=== PATIENT | female | born 1965 | race Two or more races ===

== ENCOUNTER 2020-02-04 05:46 | Day surgery (SDC) | payer OTHER ==
[~2020-02-04] VITALS: Ht 152.4 cm; Wt 68.0 kg
[~2020-02-04 05:46] MED LIST: ZOCOR20 MG PO
[2020-02-04 06:02] LABS: HEMATOCRIT 40.6 % (36.0-48.0); MCH 30.3 pg (26.0-34.0); MCV 94.6 fL (80.0-100.0); MEAN PLATELET VOLUME 10.6 fL (7.4-10.4); RBC 4.29 10x6/uL (4.00-5.40); RDW 13.3 % (11.5-14.5); WBC 5.4 10x3/uL (4.8-10.8)
[2020-02-04 06:56] VITALS: BP 105/61; Ht 152.4 cm; Wt 68.0 kg
[2020-02-04] MEDS ORDERED: HYDROCODON-ACE1 EAC7 PO (08:36)
== END 2020-02-04 10:30 | disposition home or self-care (01) ==
LOC: D.OPS 05:46 → D.PAN 07:30 → D.OPS 08:00 → D.PAN 08:00 → D.OPS 10:30
PROVIDERS: Anesthesiology; ATTEND Surgery
DX: K43.6 Other and unspecified ventral hernia with obstruction, without gangrene (principal)